=== PATIENT | male | born 1970 | race Caucasian/White ===

== ENCOUNTER 2020-06-26 08:03 | Emergency (ER) | payer OTHER ==
[2020-06-26] MEDS ORDERED: IBUPROFEN 600 MG TABLET PO STA (08:44)
--- OUTSIDE RECORDS SUMMARY | 2020-06-26 08:44 | EXTERNAL MEDICAL SUMMARY RPT | Continuity of Care Document ---
:1970 Demographics Phone Unavailable Preferred Language Unknown Marital Status Unknown Islam Affiliation Unknown Race Unknown Ethnic Group Unknown Author Organization [facility] Address [address] [phone] Phone Support Name Relationship Address Phone 21 Unavailable Unavailable Unavailable Allergies date description facility No Known Drug Allergies [facility] Social History date description facility [phone]
--- NOTE | 2020-06-26 08:46 | ED Physician Documentation ---
PD HPI NVD - Stated complaint Stated Complaint: VOMITING,BODYACHES,HOTFLASHES - Chief complaint Chief Complaint: Abd Pain - History obtained from History obtained from: Patient - Additonal information Additional information: Otherwise healthy 50-year-old gentleman has been sick for several days, generally worsening. He works at a [employer] and notes that someone he works with has tested negative for Covid although that person's roommate has tested positive. He describes especially since yesterday he has had vomiting and diarrhea, mild cough, body aches and chills. He denies shortness of breath. Review of Systems Constitutional: reports: Chills, Myalgias Nose: denies: Rhinorrhea / runny nose Throat: denies: Sore throat Respiratory: reports: Cough. denies: Dyspnea GI: reports: Nausea, Diarrhea. denies: Abdominal Pain, Hematemesis, Bloody / black stool PD PAST MEDICAL HISTORY - Past Medical History Past Medical History: No - Past Surgical History Past Surgical History: No - Present Medications Home Medications: Ambulatory Orders Medication Instructions Recorded Confirmed No Known Home Medications 06/26/20 06/26/20 - Allergies Allergies/Adverse Reactions: Allergies Allergy/AdvReac Type Severity Reaction Status Date / Time No Known Drug Allergies Allergy Verified 06/26/20 08:26 - Social History Does the pt smoke?: No Smoking Status: Never smoker Does the pt drink ETOH?: No Does the pt have substance abuse?: No - Immunizations Immunizations are current?: Yes PD ED PE NORMAL - Vitals Vital signs reviewed: Yes - General General: Alert and oriented X 3, No acute distress - Neck Neck: Supple, no meningeal sign - Cardiac Cardiac: RRR, No murmur - Respiratory Respiratory: No respiratory distress, Clear bilaterally - Abdomen Abdomen: Non tender - Back Back: No CVA TTP, No spinal TTP - Derm Derm: Normal color, Warm and dry - Extremities Extremities: No edema, No calf tenderness / cord - Neuro Neuro: Alert and oriented X 3, Normal speech Results - Vitals Vitals: Vital Signs - 24 hr 06/26/20 06/26/20 08:21 09:51 Temperature 36.8 C Heart Rate 60 49 L Respiratory 16 16 Rate Blood Pressure 157/91 H 123/72 O2 Saturation 100 100 Oxygen O2 Source Room air - Labs Labs: Laboratory Tests 06/26/20 06/26/20 06/26/20 08:40 08:40 08:57 WBC 10.5 RBC 4.99 Hgb 14.6 Hct 44.1 MCV 88.4 MCH 29.3 MCHC 33.1 RDW 15.0 Plt Count 318 MPV 9.4 Neut # (Auto) 7.4 H Lymph # (Auto) 2.2 [place] # (Auto) 0.6 Eos # (Auto) 0.1 Baso # (Auto) 0.1 Absolute Nucleated RBC 0.00 Nucleated RBC % 0.0 Sodium 136 Potassium 3.8 Chloride 103 Carbon Dioxide 27 Anion Gap 6.0 BUN 11 Creatinine 0.8 Estimated GFR (MDRD) 102 Glucose 98 Calcium 9.0 Total Bilirubin 0.6 AST 18 ALT 16 Alkaline Phosphatase 85 Total Protein 7.5 Albumin 4.5 Globulin 3.0 Albumin/Globulin Ratio 1.5 Lipase 29 Nasal Adenovirus (PCR) NOT DETECTED Nasal B. parapertussis DNA (PCR) NOT DETECTED Nasal Coronavir 229E PCR NOT DETECTED Nasal Coronavir HKU1 PCR NOT DETECTED Nasal Coronavir NL63 PCR NOT DETECTED Nasal Coronavir OC43 PCR NOT DETECTED Nasal Enterovir/Rhinovir PCR NOT DETECTED Nasal Influenza B PCR NOT DETECTED Nasal Influenza A PCR NOT DETECTED Nasal Parainfluen 1 PCR NOT DETECTED Nasal Parainfluen 2 PCR NOT DETECTED Nasal Parainfluen 3 PCR NOT DETECTED Nasal Parainfluen 4 PCR NOT DETECTED Nasal RSV (PCR) NOT DETECTED Nasal B.pertussis DNA PCR NOT DETECTED Nasal C.pneumoniae (PCR) NOT DETECTED Gurinder Human Metapneumo PCR NOT DETECTED Nasal M.pneumoniae (PCR) NOT DETECTED Nasal SARS-CoV-2 (PCR) NOT DETECTED PD MEDICAL DECISION MAKING - ED course ED course: 50-year-old gentleman with what sounds like a nonspecific viral illness. Flu and Covid are considered, bio fire respiratory panel done and negative. Labs relatively unremarkable. No evidence of bacterial illness. Departure - Departure Disposition: 01 Home, Self Care Clinical Impression: Viral syndrome Condition: Good Record reviewed to determine appropriate education?: Yes Instructions: ED Viral Syndrome Comments: Coronavirus testing here was negative. Return for new or worsening symptoms. Follow-up with your doctor early next week if not better. Forms: Activity restrictions
[2020-06-26 08:51] LABS: BASOPHILS # (AUTO) 0.1 10^3/uL (0.0-0.1); BASOPHILS % (AUTO) 0.6 %; EOSINOPHILS # (AUTO) 0.1 10^3/uL (0.0-0.7); EOSINOPHILS % (AUTO) 1.1 %; HGB - HEMOGLOBIN 14.6 g/dL (14.0-18.0); LYMPHOCYTES # (AUTO) 2.2 10^3/uL (1.5-3.5); LYMPHOCYTES % (AUTO) 20.7 %; MEAN CORPUSCULAR HEMOGLOBIN 29.3 pg (27.0-31.0); MEAN CORPUSCULAR HGB CONC 33.1 g/dL (32.0-36.0); MEAN CORPUSCULAR VOLUME 88.4 fL (80.0-94.0); MEAN PLATELET VOLUME 9.4 fL (7.4-11.4); MONOCYTES # (AUTO) 0.6 10^3/uL (0.0-1.0); MONOCYTES % (AUTO) 5.9 %; NEUTROPHILS # (AUTO) 7.4 10^3/uL (1.5-6.6); NEUTROPHILS % (AUTO) 71.2 %; PLT - PLATELET COUNT 318 10^3/uL (130-450); RED BLOOD COUNT 4.99 10^6/uL (4.70-6.10); WHITE BLOOD COUNT 10.5 x10^3/uL (4.8-10.8)
[2020-06-26 09:02] LABS: ALBUMIN 4.5 g/dL (3.2-5.5); ALBUMIN/GLOBULIN RATIO 1.5 (1.0-2.2); BILIRUBIN,TOTAL 0.6 mg/dL (0.2-1.0); CREATININE 0.8 mg/dL (0.6-1.2); TOTAL PROTEIN 7.5 g/dL (6.7-8.2)
[2020-06-26 09:52] VITALS: BP 123/72
[2020-06-26 09:54] LABS: C. PNEUMONIAE- RESP PCR PANEL NOT DETECTED
== END 2020-06-26 10:09 | disposition home or self-care (01) ==
LOC: ED 08:03
DX: B34.9 Viral infection, unspecified (principal); Z20.822 Contact with and (suspected) exposure to COVID-19
CPT/HCPCS: 0202U; 36415; 80053; 83690; 85025; 99283; 99284; A9270